=== PATIENT | male | born 1950 | race Caucasian/White ===

== ENCOUNTER 2023-07-29 14:04 | Emergency (ER) | payer MEDICARE, BC ==
[~2023-07-29] VITALS: Ht 190.5 cm; Wt 103.9 kg
[2023-07-29 14:35] VITALS: BP 134/69; TEMP 98.6; O2SAT 98
== END 2023-07-29 14:36 | disposition home or self-care (01) ==
LOC: ER 14:11
DX: L03.213 Periorbital cellulitis (principal); Z60.2 Problems related to living alone